=== PATIENT | male | born 1970 | race African-American/Black ===

== ENCOUNTER 2016-11-27 17:38 | Emergency (ER) | payer OTHER ==
[~2016-11-27] VITALS: Ht 175.3 cm; Wt 90.7 kg
[2016-11-27 17:44] VITALS: BP 129/84
[2016-11-27] MEDS ORDERED: KETOROLAC 60 MG/2 ML VIAL IM ONE (18:05)
[2016-11-27 18:45] VITALS: BP 121/71
== END 2016-11-27 18:45 ==
LOC: MED 17:38
DX: Z02.89 Encounter for other administrative examinations (principal); G89.29 Other chronic pain; M54.5 Low back pain; E78.00 Pure hypercholesterolemia, unspecified
CPT/HCPCS: 96372; 99283; J1885